=== PATIENT | female | born 1980 | race Caucasian/White ===

== ENCOUNTER → 2017-03-07 | Outpatient (CLI) | payer OTHER | LOC: KOH-I 11:24 | DX: M25.552 Pain in left hip (principal) | CPT/HCPCS: 73502 ==

== ENCOUNTER → 2021-08-31 | Outpatient (CLI) | payer OTHER ==
[~2021-08-31] MED LIST: ASPIRIN EC81 MG PO; ATORVASTATIN CA20 MG PO; CETIRIZINE HCL10 MG PO; CYCLOBENZAPRINE10 MG PO; DICLOFENAC SOD100 GM TP; EPINEPHRINE PEN; GABAPENTIN800 MG PO; IBU800 MG PO; METOPROLOL TART25 MG PO; OMEPRAZOLE20 M1 PO; PERCOCET 10-321 EACH PO; POLYETHYLENE GLYCOL PO; SINGULAIR10 MG PO; TOPIRAMATE50 MG PO
[2021-09-03 17:09] LABS: F352-IGE ARA H 8 <0.10 kU/L (Class 0); F422-IGE ARA H 1 <0.10 kU/L (Class 0); F423-IGE ARA H 2 <0.10 kU/L (Class 0); F424-IGE ARA H 3 <0.10 kU/L (Class 0); F427-IGE ARA H 9 <0.10 kU/L (Class 0); F447-IGE ARA H 6 <0.10 kU/L (Class 0)
== END ==
LOC: LAB 12:44
PROVIDERS: Internal Medicine
DX: J30.1 Allergic rhinitis due to pollen (principal); J30.89 Other allergic rhinitis; H10.45 Other chronic allergic conjunctivitis; J98.9 Respiratory disorder, unspecified; Z91.018 Allergy to other foods
CPT/HCPCS: 36415; 82785